=== PATIENT | female | born 1980 | race Two or more races ===

== ENCOUNTER 2021-11-02 22:13 | Emergency (ER) | payer MEDICAID, OTHER ==
[~2021-11-02] VITALS: Ht 137.2 cm; Wt 63.0 kg
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
--- NOTE | 2021-11-02 22:29 | NUR ---
DR. LAW FERNANDEZ AT PT'S BEDSIDE
[2021-11-02] MEDS ORDERED: oxyCODONE/APAP (5/325 MG) 1 UDTAB TABLET ONE (22:44)
[2021-11-02] MEDS: oxyCODONE/APAP (5/325 MG) 1 UDTAB TABLET PO ONE (22:50)
--- NOTE | 2021-11-02 22:51 | NUR ---
WAIVER SIGNED AND P[LACED IN PATIENT CHART
--- NOTE | 2021-11-03 02:41 | NUR ---
DR SIMONS PAGED PER DR VIEYRA.
--- NOTE | 2021-11-03 03:55 | NUR ---
DR SIMONS REPAGED PER DR VIEYRA.
[2021-11-03 04:50] VITALS: BP 118/63
[2021-11-03] MEDS ORDERED: IBUP-1957 PO (04:57)
[2021-11-03] MEDS ORDERED: HYDR-4209 PO (04:57)
[2021-11-03] MEDS ORDERED: HYDROCODONE/APAP 5/325MG TABLET ONE (05:22)
[2021-11-03] MEDS: HYDROCODONE/APAP 5/325MG TABLET PO ONE (05:28)
--- NOTE | 2021-11-03 05:32 | NUR ---
Patient discharged to home in stable condition. Written and verbal after care instructions given. Patient verbalizes understanding of instruction. Assisted out of ER via wheelchair and picked up by .
== END 2021-11-03 06:12 | disposition home or self-care (01) ==
LOC: ER 22:15
DX: S32.401A Unspecified fracture of right acetabulum, initial encounter for closed fracture (principal); R51.9 Headache, unspecified; M54.2 Cervicalgia; Z79.899 Other long term (current) drug therapy; V89.2XXA Person injured in unspecified motor-vehicle accident, traffic, initial encounter; Y93.89 Activity, other specified; Y92.89 Other specified places as the place of occurrence of the external cause; Y99.8 Other external cause status
CPT/HCPCS: 70450-TC; 72125-TC; 73130-TC; 73502; 73564-TC; 73590-TC